=== PATIENT | female | born 1970 | race Caucasian/White ===

== ENCOUNTER 2016-07-31 14:19 | Emergency (ER) | payer BC ==
[~2016-07-31] VITALS: Ht 170.2 cm; Wt 79.1 kg
[~2016-07-31 14:19] MED LIST: CELEXA40 MG PO; MASON NATURAL1000 MG PO; PRILOTC; VITAMIN D1000 IU PO
[2016-07-31 14:59] LABS: BASO % 0.3 % (0.0-2.0); EOS % 0.5 % (0-4.0); GRAN # 3.8 (1.4-6.5); GRAN % 52.3 % (42.2-75.2); HEMATOCRIT 39.5 % (37.0-47.0); HEMOGLOBIN 13.2 g/dl (12.5-16.0); LYMPH # 2.9 (1.2-3.4); LYMPH % 40.2 % (20.0-51.0); MEAN CELL VOLUME 87 fl (80.0-100.0); MEAN CORPUSCULAR HEMOGLOBIN 29 pg (27.0-31.0); MEAN CORPUSCULAR HGB CONC 33 g/dl (33.0-37.0); MEAN PLATELET VOLUME 9.5 fl (7.4-10.4); MONO # 0.5 (0.1-0.6); MONO % 6.4 % (1.7-9.3); PLATELET COUNT 221 K/mm3 (130-400); RED BLOOD COUNT 4.52 M/mm3 (4.10-5.30); REDCELL DISTRIBUTION WIDTH-CV 14.2 % (11.5-14.5); WHITE BLOOD COUNT 7.3 K/mm3 (4.8-10.8)
[2016-07-31 15:12] LABS: ADJUSTED CALCIUM 9.4 mg/dL (8.4-10.2); ALBUMIN 3.2 gm/dL (3.5-5.0); CALCIUM 8.8 mg/dL (8.4-10.2); CREATININE, serum 0.85 mg/dL (0.52-1.25); POTASSIUM 3.8 mmol/L (3.4-5.0); TOTAL PROTEIN 6.1 gm/dL (6.4-8.2)
[2016-07-31] MEDS ORDERED: VITAMIN D1000 IU PO (15:14)
[2016-07-31] MEDS ORDERED: [UNRECOGNIZED DRUG - CODE] (15:16)
[2016-07-31] MEDS ORDERED: [UNRECOGNIZED DRUG - CODE] (15:17)
[2016-07-31 15:25] LABS: C-REACTIVE PROTEIN 13.5 mg/dL (0.0-0.9)
[2016-07-31 15:28] LABS: PH 6 (5-8); URINE APPEARANCE Hazy; URINE BACTERIA Rare /hpf; URINE BILIRUBIN Negative (NEGATIVE); URINE BLOOD Negative (NEGATIVE); URINE COLOR Yellow; URINE GLUCOSE Negative (NEGATIVE); URINE KETONE Negative (NEGATIVE); URINE RBC 0-2 /hpf; URINE UROBILINOGEN Negative (NEGATIVE)
[2016-07-31 15:56] VITALS: BP 91/51; PULSE 86; TEMP 98.8
== END 2016-07-31 15:57 | disposition home or self-care (01) ==
LOC: COL.ER 14:19
PROVIDERS: Family Medicine
DX: R50.9 Fever, unspecified (principal); R05 Cough; C43.9 Malignant melanoma of skin, unspecified
CPT/HCPCS: J7030

== ENCOUNTER → 2016-09-16 | Outpatient (CLI) | payer BC ==
[~2016-09-16] MED LIST changes: +OPDIVO10 MG/ML IV; +XANAX 0.5MG0.5 MG PO; +[UNRECOGNIZED DRUG - CODE]; +[UNRECOGNIZED DRUG - CODE]
== END ==
LOC: MC.RAD 15:20
DX: Z12.31 Encounter for screening mammogram for malignant neoplasm of breast (principal)

== ENCOUNTER 2016-11-06 13:10 | Emergency (ER) | payer BC ==
[~2016-11-06] VITALS: Ht 170.2 cm; Wt 70.5 kg
[~2016-11-06 13:10] MED LIST changes: -OPDIVO10 MG/ML IV; -XANAX 0.5MG0.5 MG PO
[2016-11-06 13:12] VITALS: TEMP 97.5
[2016-11-06] MEDS ORDERED: XANAX 0.5MG0.5 MG PO (13:18)
[2016-11-06] MEDS ORDERED: OPDIVO10 MG/ML IV (13:19)
[2016-11-06 13:52] LABS: BASO % 0.2 % (0.0-2.0); EOS # 0.7 (0.0-0.7); EOS % 14.6 % (0-4.0); GRAN # 1.5 (1.4-6.5); GRAN % 30.1 % (42.2-75.2); LYMPH # 2.3 (1.2-3.4); MEAN CELL VOLUME 89 fl (80.0-100.0); MEAN CORPUSCULAR HGB CONC 33 g/dl (33.0-37.0); MEAN PLATELET VOLUME 9.7 fl (7.4-10.4); MONO # 0.4 (0.1-0.6); MONO % 8.1 % (1.7-9.3); PLATELET COUNT 225 K/mm3 (130-400); RED BLOOD COUNT 3.07 M/mm3 (4.10-5.30); REDCELL DISTRIBUTION WIDTH-CV 14.8 % (11.5-14.5); WHITE BLOOD COUNT 4.8 K/mm3 (4.8-10.8)
[2016-11-06 13:54] LABS: HEMATOCRIT 27.2 % (37.0-47.0); HEMOGLOBIN 8.9 g/dl (12.5-16.0); MEAN CORPUSCULAR HEMOGLOBIN 29 pg (27.0-31.0)
[2016-11-06 14:09] LABS: ADJUSTED CALCIUM 9.6 mg/dL (8.4-10.2); ALANINE AMINOTRANSFERASE 49 U/L (9-52); ALBUMIN 3.2 gm/dL (3.5-5.0); ALKALINE PHOSPHATASE 47 U/L (50-136); ANION GAP 8 mmol/L (7-16); BILIRUBIN,TOTAL 0.7 mg/dL (0.0-1.0); BLOOD UREA NITROGEN 7 mg/dL (7-17); C-REACTIVE PROTEIN < 0.5 mg/dL (0.0-0.9); CARBON DIOXIDE 23 mmol/L (22-30); CHLORIDE 108 mmol/L (98-107); GLUCOSE 76 mg/dL (74-106); POTASSIUM 3.7 mmol/L (3.4-5.0); SODIUM 139 mmol/L (137-145); TOTAL PROTEIN 5.6 gm/dL (6.4-8.2)
[2016-11-06 15:47] LABS: PH 5 (5-8); SQUAMOUS EPITHELIAL 0-2 /hpf; URINE APPEARANCE Hazy; URINE BACTERIA None Seen /hpf; URINE BILIRUBIN Negative (NEGATIVE); URINE BLOOD Negative (NEGATIVE); URINE COLOR Yellow; URINE GLUCOSE Negative (NEGATIVE); URINE KETONE 1+ (NEGATIVE); URINE RBC 20-50 /hpf; URINE UROBILINOGEN Negative (NEGATIVE); URINE WBC 0-2 /hpf
[2016-11-06 16:55] VITALS: BP 98/65; PULSE 88
== END 2016-11-06 16:56 | disposition home or self-care (01) ==
LOC: COL.ER 13:10
PROVIDERS: Emergency Medicine
DX: F41.9 Anxiety disorder, unspecified (principal); C43.9 Malignant melanoma of skin, unspecified
CPT/HCPCS: J2060; J7030

== ENCOUNTER → 2017-09-13 | Outpatient (CLI) | payer BC ==
[~2017-09-13] MED LIST changes: +OPDIVO10 MG/ML IV; +XANAX 0.5MG0.5 MG PO
== END ==
LOC: COL.RAD 07:17
DX: C43.59 Malignant melanoma of other part of trunk (principal); Z97.5 Presence of (intrauterine) contraceptive device; Z95.828 Presence of other vascular implants and grafts
CPT/HCPCS: Q9967

== ENCOUNTER → 2017-12-21 | Outpatient (CLI) | payer BC | LOC: COL.RAD 12:46 | DX: C43.59 Malignant melanoma of other part of trunk (principal); R42 Dizziness and giddiness | CPT/HCPCS: A9585 ==

== ENCOUNTER → 2018-02-20 | Outpatient (CLI) | payer BC | LOC: MC.RAD 13:54 | DX: Z12.31 Encounter for screening mammogram for malignant neoplasm of breast (principal) ==

== ENCOUNTER → 2018-07-23 | Outpatient (CLI) | payer BC | LOC: COL.RAD 08:12 | DX: C43.59 Malignant melanoma of other part of trunk (principal) | CPT/HCPCS: A9585 ==

== ENCOUNTER → 2018-10-05 | Outpatient (CLI) | payer BC | LOC: COL.RAD 08:25 | DX: C43.59 Malignant melanoma of other part of trunk (principal); Z95.828 Presence of other vascular implants and grafts | CPT/HCPCS: Q9967 ==

== ENCOUNTER 2019-02-26 09:15 | Outpatient (RCR) | payer BC | END 2019-03-27 13:00 | disposition home or self-care (01) | LOC: WSOT 09:15 | DX: M19.021 Primary osteoarthritis, right elbow (principal); M19.022 Primary osteoarthritis, left elbow ==

== ENCOUNTER → 2019-04-01 | Outpatient (CLI) | payer BC | LOC: MC.RAD 14:09 | DX: Z12.31 Encounter for screening mammogram for malignant neoplasm of breast (principal) ==

== ENCOUNTER → 2019-11-06 | Outpatient (CLI) | payer BC | LOC: COL.RAD 08:30 | DX: C43.59 Malignant melanoma of other part of trunk (principal) | CPT/HCPCS: Q9967 ==

== ENCOUNTER → 2020-02-25 | Outpatient (CLI) | payer BC | LOC: COL.RAD 09:43 | DX: C43.59 Malignant melanoma of other part of trunk (principal); C43.8 Malignant melanoma of overlapping sites of skin; C77.1 Secondary and unspecified malignant neoplasm of intrathoracic lymph nodes; C78.01 Secondary malignant neoplasm of right lung; M47.815 Spondylosis without myelopathy or radiculopathy, thoracolumbar region; J98.6 Disorders of diaphragm; Z95.9 Presence of cardiac and vascular implant and graft, unspecified | CPT/HCPCS: Q9967 ==